=== PATIENT | male | born 1990 | race Caucasian/White ===

== ENCOUNTER 2023-01-01 05:09 | Inpatient (IN) | payer SELFPAY ==
[2023-01-01] MEDS ORDERED: FAMOTIDINE 20 MG/2 ML VIAL IV ONE (05:22)
[2023-01-01] MEDS ORDERED: ONDANSETRON 4 MG/2 ML VIAL ONE ×2 (05:22→09:07)
[2023-01-01] MEDS ORDERED: NA CHLORIDE 0.9% 1,000 ML ONE (05:22)
[2023-01-01] MEDS ORDERED: MORPHINE 4 MG/ML SYR ONE (05:22)
[2023-01-01 05:46] LABS: Absolute Lymphocytes (CBC) 1.4 K/uL (0.7-4.9); Lymphocytes % 8.7 % (15.3-44.8); MCV 88.9 fL (80-100); MPV 8.4 fL (7.6-11.3); RBC Red Blood Cell Count 5.41 M/uL (4.33-5.43)
[2023-01-01 05:57] LABS: Albumin 4.1 g/dL (3.4-5.0); Bilirubin Total 0.5 mg/dL (0.2-1.0); Potassium 3.6 mEq/L (3.5-5.1); Protein, Total 8.2 g/dL (6.4-8.2)
--- NOTE | 2023-01-01 06:43 | EDPHYS ---
Physician Documentation [facility] Name: Fabian Werner Age: 32 yrs Sex: Male : 1990 Arrival Date: 01/01/2023 Time: 05:09 Bed 8 Private MD: ED Physician Richard Nguyen HPI: 01/01 05:18 This 32 yrs old Male presents to ER via Unassigned with unknown complaint. kdr 05:18 This 32 yrs old Male presents to ER via Unassigned with complaints of Abdominal pain. kdr 05:18 Patient states that about 10 PM tonight he began to have right upper quadrant pain as kdr since enlarged to engage most of his right abdomen and flank. Patient states he cannot get comfortable in any position he had nausea but no vomiting. Onset: The symptoms/episode began/occurred suddenly, last night, at 22:00. Severity of symptoms: At their worst the symptoms were severe incapacitating in the emergency department the symptoms are unchanged. The patient has experienced similar episodes in the past, a few times. The patient has not recently seen a physician. Patient has has intermittent abdominal pain and was previously evaluated for gallstones. Historical: - Allergies: 05:22 PENICILLINS; aa9 05:22 tide; aa9 - PSHx: 05:22 None; aa9 - Immunization history:: Client reports receiving the 2nd dose of the Covid vaccine. - Social history:: Smoking status: Patient reports the use of cigarette tobacco products, smokes one pack cigarettes per day. ROS: 05:21 Constitutional: Negative for fever, chills, and weight loss, Eyes: Negative for injury, kdr pain, redness, and discharge, ENT: Negative for injury, pain, and discharge, Neck: Negative for injury, pain, and swelling, Cardiovascular: Negative for chest pain, palpitations, and edema, Respiratory: Negative for shortness of breath, cough, wheezing, and pleuritic chest pain, Back: Negative for injury and pain, : Negative for injury, bleeding, discharge, and swelling, MS/Extremity: Negative for injury and deformity, Skin: Negative for injury, rash, and discoloration, Neuro: Negative for headache, weakness, numbness, tingling, and seizure activity. Psych: Negative for depression, anxiety, suicide ideation, homicidal ideation, and hallucinations, Allergy/Immunology: Negative for hives, rash, and allergies, Endocrine: Negative for neck swelling, polydipsia, polyuria, polyphagia, and marked weight changes, Hematologic/Lymphatic: Negative for swollen nodes, abnormal bleeding, and unusual bruising. 05:21 Abdomen/GI: Positive for abdominal pain, nausea, Negative for diarrhea, abdominal distension, anorexia, dysphagia, hematemesis, black/tarry stool, rectal pain, rectal bleeding, bowel incontinence. Exam: 05:52 Constitutional: This is a well developed, well nourished patient who is awake, alert, kdr and in moderate distress. Head/Face: Normocephalic, atraumatic. Eyes: Pupils equal round and reactive to light, extra-ocular motions intact. Lids and lashes normal. Conjunctiva and sclera are non-icteric and not injected. Cornea within normal limits. Periorbital areas with no swelling, redness, or edema. Neck: Trachea midline, no thyromegaly or masses palpated, and no cervical lymphadenopathy. Supple, full range of motion without nuchal rigidity, or vertebral point tenderness. No Meningismus. Chest/axilla: Normal chest wall appearance and motion. Nontender with no deformity. No lesions are appreciated. Cardiovascular: Regular rate and rhythm with a normal S1 and S2. No gallops, murmurs, or rubs. Normal PMI, no JVD. No pulse deficits. Respiratory: Lungs have equal breath sounds bilaterally, clear to auscultation and percussion. No rales, rhonchi or wheezes noted. No increased work of breathing, no retractions or nasal flaring. Back: No spinal tenderness. No costovertebral tenderness. Full range of motion. Skin: Warm, dry with normal turgor. Normal color with no rashes, no lesions, and no evidence of cellulitis. MS/ Extremity: Pulses equal, no cyanosis. Neurovascular intact. Full, normal range of motion. Neuro: Awake and alert, GCS 15, oriented to person, place, time, and situation. Cranial nerves II-XII grossly intact. Motor strength 5/5 in all extremities. Sensory grossly intact. Cerebellar exam normal. Normal gait. Psych: Awake, alert, with orientation to person, place and time. Behavior, mood, and affect are within normal limits. 05:52 Abdomen/GI: Inspection: abdomen appears normal, Bowel sounds: active, diminished, in all quadrants, Palpation: moderate abdominal tenderness, in the anterior aspect of right lateral abdomen and right upper quadrant, rebound tenderness, is not appreciated. Vital Signs: 05:12 BP 145 / 97; Temp 98.8(O); Pulse Ox 100% on R/A; aa9 05:12 Weight 99.79 kg; Height 6 ft. 0 in. ; aa9 05:20 BP 145 / 97; Pulse 82; Resp 18; Temp 98.1(TE); Pulse Ox 100% on R/A; Weight 99.79 kg; oe Height 6 ft. 0 in. ; 06:35 BP 130 / 86; Pulse 86; Resp 17 S; Pulse Ox 100% on R/A; aa9 08:45 BP 125 / 76; Pulse 95; Resp 18; Pulse Ox 100% on R/A; Pain 7/10; ld1 05:20 Body Mass Index 29.84 (99.79 kg, 182.88 cm) oe 08:45 Pain Scale: Adult ld1 MDM: 05:52 Data reviewed: vital signs, nurses notes, lab test result(s), radiologic studies. kdr 06:43 Patient medically screened. kdr 01/01 05:16 Order name: CBC with Diff; Complete Time: 06:34 kdr 01/01 05:16 Order name: CMP; Complete Time: 06:34 kdr 01/01 05:16 Order name: Lipase; Complete Time: 06:34 kdr 01/01 06:17 Order name: CREATININE WHOLE BLOOD; Complete Time: 06:34 EDMS 01/01 07:51 Order name: Basic Metabolic Panel EDMS 01/01 07:51 Order name: Basic Metabolic Panel EDMS 01/01 07:51 Order name: CBC with Automated Diff EDMS 01/01 07:51 Order name: CBC with Automated Diff EDMS 01/01 07:51 Order name: Lipase EDMS 01/01 07:51 Order name: Lipase EDMS 01/01 07:51 Order name: Liver (Hepatic) Function EDMS 01/01 07:51 Order name: Liver (Hepatic) Function EDMS 01/01 05:16 Order name: Abdomen Limited US kdr 01/01 05:16 Order name: CT Abd/Pelvis - IV Contrast Only kdr 01/01 06:46 Order name: Cholangiogram EDMS 01/01 07:51 Order name: NPO EDMS 01/01 05:16 Order name: IV Saline Lock; Complete Time: 05:26 kdr 01/01 05:16 Order name: Labs collected and sent; Complete Time: :36 kdr Administered Medications: 05:20 Drug: Famotidine IVP 20 mg Route: IVP; Site: right antecubital; aa9 06:35 Follow up: Response: No adverse reaction aa9 05:23 Drug: Ondansetron IVP 4 mg Route: IVP; Site: right antecubital; aa9 06:35 Follow up: Response: No adverse reaction aa9 05:25 Drug: NS 0.9% IV 1000 ml Route: IV; Rate: 1 bolus; Site: right antecubital; aa9 05:26 Drug: morphine IVP or IV 4 mg Route: IVP; Infused Over: 4 mins; Site: right antecubital;aa9 06:36 Follow up: Response: No adverse reaction aa9 06:40 Drug: levofloxacin IVPB 500 mg Volume: 100 ml; Route: IVPB; Infused Over: 60 mins; aa9 Site: right antecubital; Disposition Summary: 01/01/23 06:43 Hospitalization Ordered Hospitalization Status: Observation kdr Provider: Zues Curran Location: Telemetry/MedSurg (Inpatient) kdr Condition: Fair kdr Problem: new kdr Symptoms: have improved kdr Bed/Room Type: Standard kdr Room Assignment: 208(01/01/23 07:51) dw Diagnosis - Acute cholecystitis kdr - Other cholelithiasis without obstruction kdr - Upper abdominal pain, unspecified kdr Forms: - Medication Reconciliation Form kdr - SBAR form kdr Signatures: Dispatcher [employer] EDShannan Lynch RN RN dw Richard Nguyen MD MD kdr Stella Seaman RN RN aa9 Corrections: (The following items were deleted from the chart) 05: 05:22 PMHx: None; aa9 07:51 06:43 kdr dw
--- NOTE | 2023-01-01 06:43 | ER ---
Nurse's Notes [facility] Name: Fabian Werner Age: 32 yrs Sex: Male : 1990 Arrival Date: 01/01/2023 Time: 05:09 Bed 8 Private MD: Diagnosis: Acute cholecystitis;Other cholelithiasis without obstruction;Upper abdominal pain, unspecified Presentation: 01/01 05:12 Chief complaint: EMS states: toned out for right sided abdominal pain, reports N/V aa9 denies Diarrhea, began about 10 PM last night. VS WNL en route. Coronavirus screen: Vaccine status: Patient reports receiving the 2nd dose of the covid vaccine. Ebola Screen: No symptoms or risks identified at this time. Initial Sepsis Screen: Does the patient meet any 2 criteria? No. Patient's initial sepsis screen is negative. Does the patient have a suspected source of infection? No. Patient's initial sepsis screen is negative. Risk Assessment: Do you want to hurt yourself or someone else? Patient reports no desire to harm self or others. Onset of symptoms was January 01, 2023. Care prior to arrival: Medication(s) given: zofran 4 mg, ketorolac. Activity prior to arrival: vomiting. 05:12 Method Of Arrival: EMS: [facility] aa9 05:12 Acuity: ASHLEE 3 aa9 Triage Assessment: 05:22 General: Appears uncomfortable, slender, Behavior is cooperative, anxious, crying. aa9 Pain: Complains of pain in right upper quadrant and right lower quadrant Pain radiates to epigastric area Pain currently is 10 out of 10 on a pain scale. Pain began 1 day ago. Noted to be crying, moaning, resistant to movement, Also complains of nausea. Neuro: Level of Consciousness is awake, alert, obeys commands, Oriented to person, place, time, situation. Respiratory: Airway is patent Respiratory effort is even, unlabored. GI: Abdomen is flat, Reports epigastric pain, nausea, vomiting, Patient currently denies diarrhea. : No signs and/or symptoms were reported regarding the genitourinary system. Derm: Skin is intact, is healthy with good turgor. Historical: - Allergies: 05:22 PENICILLINS; aa9 05:22 tide; aa9 - PSHx: 05:22 None; aa9 - Immunization history:: Client reports receiving the 2nd dose of the Covid vaccine. - Social history:: Smoking status: Patient reports the use of cigarette tobacco products, smokes one pack cigarettes per day. Screenin:46 [facility] ED Fall Risk Assessment (Adult) History of falling in the last 3 months, ld1 including since admission No falls in past 3 months (0 pts). Abuse screen: Denies threats or abuse. Denies injuries from another. Nutritional screening: No deficits noted. Tuberculosis screening: No symptoms or risk factors identified. Assessment: 06:33 Reassessment: Patient appears in no apparent distress at this time. Patient and/or aa9 family updated on plan of care and expected duration. Pain level reassessed. Patient is alert, oriented x 3, equal unlabored respirations, skin warm/dry/pink. 08:46 Reassessment: Patient appears in no apparent distress at this time. No changes from ld1 previously documented assessment. Patient and/or family updated on plan of care and expected duration. Pain level reassessed. C/O pain to ABD. OR team at bedside taking patient to OR. Vital Signs: 05:12 BP 145 / 97; Temp 98.8(O); Pulse Ox 100% on R/A; aa9 05:12 Weight 99.79 kg; Height 6 ft. 0 in. ; aa9 05:20 BP 145 / 97; Pulse 82; Resp 18; Temp 98.1(TE); Pulse Ox 100% on R/A; Weight 99.79 kg; oe Height 6 ft. 0 in. ; 06:35 BP 130 / 86; Pulse 86; Resp 17 S; Pulse Ox 100% on R/A; aa9 08:45 BP 125 / 76; Pulse 95; Resp 18; Pulse Ox 100% on R/A; Pain 7/10; ld1 05:20 Body Mass Index 29.84 (99.79 kg, 182.88 cm) oe 08:45 Pain Scale: Adult ld1 ED Course: 05:11 Patient arrived in ED. aa9 05:12 Richard Nguyen MD is Attending Physician. kdr 05:22 Triage completed. aa9 05:25 Arm band placed on. aa9 05:25 Patient has correct armband on for positive identification. Placed in gown. Bed in low aa9 position. Call light in reach. Side rails up X 1. Adult w/ patient. Pulse ox on. NIBP on. 05:26 Maintain EMS IV. Dressing intact. Good blood return noted. Site clean \T\ dry. Gauge \T\ aa 9 site: 20 G R AC. 05:32 Stella Seaman, RN is Primary Nurse. aa9 05:36 CBC with Diff Sent. aa9 05:36 CMP Sent. aa9 05:36 Lipase Sent. aa9 05:48 Abdomen Limited US In Process Unspecified. EDMS 06:02 CT Abd/Pelvis - IV Contrast Only In Process Unspecified. EDMS 06:42 Zeus Curran MD is Hospitalizing Provider. kdr 07:40 Cholangiogram In Process Unspecified. EDMS 08:46 No provider procedures requiring assistance completed. Patient admitted, IV remains in ld1 place. Administered Medications: 05:20 Drug: Famotidine IVP 20 mg Route: IVP; Site: right antecubital; aa9 06:35 Follow up: Response: No adverse reaction aa9 05:23 Drug: Ondansetron IVP 4 mg Route: IVP; Site: right antecubital; aa9 06:35 Follow up: Response: No adverse reaction aa9 05:25 Drug: NS 0.9% IV 1000 ml Route: IV; Rate: 1 bolus; Site: right antecubital; aa9 05:26 Drug: morphine IVP or IV 4 mg Route: IVP; Infused Over: 4 mins; Site: right antecubital;aa9 06:36 Follow up: Response: No adverse reaction aa9 06:40 Drug: levofloxacin IVPB 500 mg Volume: 100 ml; Route: IVPB; Infused Over: 60 mins; aa9 Site: right antecubital; Medication: 08:47 VIS not applicable for this client. ld1 Outcome: 06:43 Decision to Hospitalize by Provider. kdr 08:46 Admitted to OR accompanied by nurse, via stretcher, room 208, Report called to ld1 AWILDA Vizcaino 08:46 Condition: stable 08:46 Instructed on the need for admit. 08:47 Patient left the ED. ld1 Signatures: Dispatcher [employer] EDMS Richard Nguyen MD MD kdr Espinosa, [place] oe Sims, Lauren, RN RN ld1 Stella Seaman, RN RN aa9 Corrections: (The following items were deleted from the chart) 05:22 05:22 PMHx: None; aa9 aa9 05:26 05:26 Pulse 82bpm; aa9 aa9
[2023-01-01] MEDS ORDERED: Levofloxacin500mg IV 500 MG/100 ML BAG IV ONE (06:44)
[2023-01-01] MEDS ORDERED: ACETAMINOPHEN 500 MG TAB PO PRN (07:48)
[2023-01-01] MEDS ORDERED: ONDANSETRON 4 MG/2 ML VIAL IV PRN ×2 (07:48→11:08)
[2023-01-01] MEDS ORDERED: D5 0.45 NS 1,000 ML IV SCH (08:15)
--- NOTE | 2023-01-01 08:16 | RAD REPORT ---
EXAM DESCRIPTION: MRICholangiogram01/01/2023 7:43 am CLINICAL HISTORY: Abdominal pain COMPARISON: Ultrasound and CT January 01, 2023 TECHNIQUE: Magnetic resonance cholangiogram was performed.3D MIP reconstruction performed. Additiona l axial and coronal magnetic resonance imaging of abdomen obtained. FINDINGS: Multiple small filling defects in the gallbladder consistent with stones. Gallbladder wall upper limits normal thickness. Common bile duct measures 6.5 millimeters. Filling defect within duct is not visualized. The pancreatic duct are unremarkable IMPRESSION: Cholelithiasis Borderline dilatation of the cough bile duct. A stone within the duct is not visualized
[2023-01-01] MEDS ORDERED: Ringers Lactate 1,000 ML IV ONE (08:57)
[2023-01-01] MEDS ORDERED: propofoL 200 MG/20 ML VIAL IV ONE (08:59)
[2023-01-01] MEDS ORDERED: ROCURONIUM 50 MG/5 ML VIAL IV ONE (09:00)
[2023-01-01] MEDS ORDERED: LIDOCAINE 2% MPF 5 ML VIAL ONE (09:00)
[2023-01-01] MEDS ORDERED: MIDAZOLAM HCL 2 MG/2 ML INJ ONE (09:01)
[2023-01-01] MEDS ORDERED: FENTANYL CITR 250 MCG/5 ML ONE (09:01)
[2023-01-01] MEDS ORDERED: GLYCOPYRROLATE 0.2 MG/ML SYR ONE (09:02)
--- NOTE | 2023-01-01 09:04 | P.HP ---
Date of Service: 01/01/23 Chief complaint: Abdominal pain History of present Illness: Patient is a 32-year-old male who presented to the emergency room with acute onset of epigastric and right upper quadrant abdominal pain radiating to the back after eating baked chicken. Patient has had several episodes similar to this in the past. This episode, however, was severe and patient came to the ER. Patient had nausea and vomiting associated with and patient has had bloating, belching and heartburn as well in the past. Patient denies sore throat, runny nose, cough, headaches, dizziness, chest pain, fever or chills Review of systems: Otherwise unremarkable Past medical history: Negative Past surgical history: Negative Allergies: Penicillin Social history: Patient does smoke and drink alcohol occasionallyhas been counseled Family history: Heart disease and unknown type of cancer in the mother Vital signs: Stable, afebrile Physical exam: Awake alert oriented x3 Head and neck: No evidence of icterus, cranial nerves II through XII grossly within normal limits, no neck masses, no JVD, throat clear and neck supple Chest: Clear Heart: S1-S2 Abdomen: Soft, nondistended, positive bowel sound, positive right upper quadrant tenderness with reboundno rigidity or guarding Extremity: Neurovascular intact, nontender Neuro: Nonfocal Diagnostic data: Leukocytosis, LFTs normal, dilated common bile duct and negative ERCP with cholelithiasis Assessment: Acute cholecystitis and cholelithiasis Plan/recommendation: Admit, n.p.o., IV fluids, IV antibiotics, to the OR for laparoscopic cholecystectomy, possible open. Patient understands risks, benefits and alternatives and agrees to procedure. CC:
[2023-01-01] MEDS ORDERED: NEOSTIGMINE 1 MG/ML -10 ML VIAL ONE (09:07)
[2023-01-01] MEDS ORDERED: dexAMETHasone 4 MG/ML VIAL ONE (09:48)
[2023-01-01] MEDS ORDERED: HYDROMORPHONE HCL 1 MG/ML INJ IV PRN (11:08)
[2023-01-01] MEDS ORDERED: HYDROCODONE/APAP 7.5/325 MG TAB PO PRN (11:08)
[2023-01-01 11:53] VITALS: BMI 29.8
--- NOTE | 2023-01-01 11:56 | RAD REPORT ---
EXAM DESCRIPTION: CT - Abdomen Pelvis W Contrast - 01/01/2023 6:28 am TECHNIQUE: Axial images were taken through the abdomen and pelvis after the administration of IV con trast. All CT scans at this facility use dose modulation, iterative reconstruction, and/or weight b ased dosing when appropriate to reduce radiation dose to as low as reasonably achievable CLINICAL HISTORY: Right sided abd pain, nausea, vomiting COMPARISON: None FINDINGS: Lower chest: Atelectatic changes noted at the bilateral lung bases. The visualized cardiac and posterior mediast inal structures are unremarkable. ABDOMEN: The liver appears unremarkable. There is no evidence for mass or intrahepatic biliary ductal dilatati on. The gallbladder appears unremarkable. There is no evidence for gallbladder wall thickening or pericholecystic fluid. The adrenal glands, pancreas and spleen are normal. The kidneys appear u nremarkable. There is no evidence for hydronephrosis or stone. The large and small bowel of the abdomen and pelvis appears unremarkable. A short segment of the a ppendix is visualized posterior to the cecum. No inflammatory changes are identified to suggest acu te appendicitis. The aorta is normal in caliber. There is no evidence for pathologically enlarged adenopathy. PELVIS: The bladder appears unremarkable. There is no intrapelvic free air or free fluid. The prostate and seminal vesicles are unremarkable. No acute soft tissue abnormality is identified. No acute osseous abnormality is seen. IMPRESSION: No acute abnormality in the abdomen or pelvis. Normal appendix. Electronically signed by: Ad Tomas MD 01/01/2023 6:21 AM CDT [id number] Due to temporary technical issues with the PACS/Fluency reporting system, reports are being signed by the in house radiologists without review as a courtesy to insure prompt reporting. The interpreting radiologist is fully responsible for the content of the report.
--- NOTE | 2023-01-01 11:57 | RAD REPORT ---
EXAM DESCRIPTION: US - Abdomen Exam Limited - 01/01/2023 5:46 am CLINICAL HISTORY: The patient is 32 years old and is Male; ABD PAIN TECHNIQUE: Real-time ultrasound of the right upper quadrant with image documentation. COMPARISON: No relevant prior studies available. FINDINGS: Gallbladder: Multiple gallstones with sludge. Gallbladder wall thickness 2.4 mm. Trace pericholecystic fluid. Common bile duct: Common bile duct 6.2 mm in diameter, borderline dilated. No stones. Pancreas: Unremarkable as visualized. IMPRESSION: 1. Cholelithiasis with sludge. Trace pericholecystic fluid raises suspicion for cholec ystitis. Clinical correlation suggested. 2. Common bile duct 6.2 mm in diameter, borderline dilated. Electronically signed by: Wendy Schuster MD 01/01/2023 5:57 AM CDT Due to temporary technical issues with the PACS/Fluency reporting system, reports are being signed by the in house radiologists without review as a courtesy to insure prompt reporting. The interpreting radiologist is fully responsible for the content of the report.
--- NOTE | 2023-01-01 12:10 | OP ---
Date of Procedure: 01/01/2023 Surgeon: Zeus Curran MD Drawing Press Operator: MARY Allen. Preoperative Diagnoses: Acute cholecystitis and cholelithiasis. Postoperative Diagnoses: Acute cholecystitis and cholelithiasis. Procedure: Laparoscopic cholecystectomy. Estimated Blood Loss: Minimal. Specimen: Gallbladder. Finding: As above. Anesthesia: General. Complications: None. Disposition: The patient tolerated the procedure in stable condition and taken to recovery room in g ood general condition. Procedure In Detail: The patient was brought to the OR and placed in supine position. General anest hesia begun. The patient was prepped and draped in the usual sterile fashion. Marcaine 0.5% was inf iltrated locally. A 15-blade was used to make a 1 cm supraumbilical midline incision. The subcutane ous tissue was divided. Fascia identified and divided. A #1 Vicryl stay suture was placed. Periton eal cavity entered with sharp and blunt dissection. A 12 mm trocar placed into the peritoneal cavity under direct vision. Pneumoperitoneum was established and then three 5 mm trocars were placed, 1 in the epigastrium and the other 2 in the right subcostal region. Laparoscopy revealed a distended thi ck-walled gallbladder. Subsequently, fundus retracted superiorly. Infundibulum was identified and r etracted inferolaterally. Cystic duct and cystic artery clearly identified with blunt dissection. C lips were placed. Both structures were divided. Cautery was used to remove the gallbladder from the liver bed. Bleeding on the liver bed controlled with cautery. Gallbladder was retrieved through th e umbilicus via an EndoCatch bag. The right upper quadrant was irrigated. Effluent was clear. No e vidence of bleeding or bile leakage appreciated. Subsequently, all trocars were removed under direct vision. Stay sutures were tied to each other to reapproximate the fascial defect. Subcutaneous wou nds were irrigated. Bleeding controlled with cautery. A 3-0 chromic used to reapproximate the subcu taneous tissue and cat were used to close the skin. Sterile dressing applied. The patient was a wakened and taken to recovery room in good general condition. /MODL Voice ID: [id number] Report ID: [id number]
[2023-01-01 14:23] VITALS: O2SAT 97
[2023-01-01 16:20] VITALS: BP 133/84; TEMP 97.5
--- NOTE | 2023-01-01 18:45 | DS ---
Date of Discharge: 01/01/2023 Admitting Diagnoses: Acute cholecystitis and cholelithiasis. Discharge Diagnoses: Acute cholecystitis and cholelithiasis. Procedure Performed: Laparoscopic cholecystectomy. Hospital Course: The patient is a 32-year-old gentleman, underwent the aforementioned procedure. Po stoperatively, he is tolerating diet, ambulating, pain controlled on p.o. pain medications, and he is afebrile. The patient will be discharged home. Disposition: Home. Condition: Stable. Discharge Instructions: Resume home medications and diet. Activity as tolerated. No heavy lifting. Remove outer dressing in 2 days and shower, and keep wounds clean and dry. Follow up in my office in a week. Call for appointment. Prescription for Marlow 7.5, Colace 100 mg, Cipro 5 mg have been ca lled in to the patient's pharmacy. ALFRED/MARCOS Voice ID: [id number] Report ID: [id number]
[2023-01-02] MEDS ORDERED: Levofloxacin500mg IV 500 MG/100 ML BAG IV SCH (06:00)
== END 2023-01-01 18:43 | disposition home or self-care (01) | DRG 419 ==
LOC: ER 05:09 → 2ND 07:02
PROVIDERS: ADMIT Surgery; ATTEND Surgery
PROC: 0FT44ZZ Resection of Gallbladder, Percutaneous Endoscopic Approach (ICD-10-PCS; principal; 2023-01-01 08:45)
DX: K80.00 Calculus of gallbladder with acute cholecystitis without obstruction (principal); F17.210 Nicotine dependence, cigarettes, uncomplicated; Z71.6 Tobacco abuse counseling; Z88.0 Allergy status to penicillin; Z91.09 Other allergy status, other than to drugs and biological substances; Z82.49 Family history of ischemic heart disease and other diseases of the circulatory system; Z80.9 Family history of malignant neoplasm, unspecified
CPT/HCPCS: 36415; 74177; 74181; 76705; 80053; 82565; 83690; 85025; 88304; 94010; 96374; 96375; 99285; J1100; J1170; J2001; J2250; J2405; J2704; J2710; J3010; J7030; J7120; J7799; Q9967